=== PATIENT | male | born 2000 | race Caucasian/White ===

== ENCOUNTER 2019-03-13 01:10 | Emergency (ER) | payer OTHER ==
[~2019-03-13] VITALS: Ht 177.8 cm; Wt 63.5 kg
[2019-03-13] MEDS ORDERED: METADATE ER20 MG (01:17)
[2019-03-13] MEDS ORDERED: SYMBICORT 16010.2 GM IH (02:53)
[2019-03-13] MEDS ORDERED: PROVENTIL HFA6.7 GM IH (02:53)
[2019-03-13] MEDS ORDERED: ALBUTEROL2.5 MG/3 M IH (02:53)
[2019-03-13] MEDS ORDERED: SINGULAIR10 MG PO (02:53)
[2019-03-13] MEDS ORDERED: ZYNCOF 20-400120 ML PO (02:53)
[2019-03-13] MEDS ORDERED: FLONASE16 GM NASAL (02:53)
[2019-03-13] MEDS ORDERED: ZYRTEC10 M2 PO (02:53)
== END 2019-03-13 03:07 ==
LOC: ER 01:10
DX: J45.998 Other asthma (principal)